=== PATIENT | female | born 1945 | race Caucasian/White ===

== ENCOUNTER → 2016-12-07 | Outpatient (CLI) | payer MEDICARE, OTHER ==
[~2016-12-07] MED LIST: CALTRATE-600 W600 MG PO; LEVOTHYROXINE0.1 MG PO; LISINOPRIL10 MG PO; MVI PO; VITAMIN E800 I1 PO; ZOCOR40 MG PO
[2016-12-07 14:23] LABS: AMYLASE 58 U/L (30-110); LIPASE 212 U/L (23-300)
== END ==
LOC: ZCOL.LAB 13:36
PROVIDERS: Physician Assistant Medical
DX: R10.11 Right upper quadrant pain (principal)

== ENCOUNTER → 2016-12-12 | Outpatient (CLI) | payer MEDICARE, OTHER | LOC: COL.RAD 09:26 | DX: R10.11 Right upper quadrant pain (principal) | CPT/HCPCS: A9537 ==

== ENCOUNTER → 2018-01-13 | Outpatient (CLI) | payer MEDICARE, OTHER | LOC: MC.RAD 13:00 | DX: Z12.31 Encounter for screening mammogram for malignant neoplasm of breast (principal) ==

== ENCOUNTER → 2020-02-02 | Outpatient (CLI) | payer MEDICARE, OTHER | LOC: MC.RAD 09:00 | DX: Z12.31 Encounter for screening mammogram for malignant neoplasm of breast (principal) ==

== ENCOUNTER 2020-04-08 15:47 | Outpatient (CLI) | payer MEDICARE, OTHER ==
[~2020-04-08] VITALS: Ht 157.5 cm; Wt 60.0 kg
[2020-04-08] MEDS ORDERED: SYNTHROID0.1 MG/TAB PO (16:50)
[2020-04-08] MEDS ORDERED: ZESTRIL 10MG10 MG PO (16:51)
[2020-04-08] MEDS ORDERED: ZOCOR 40MG40 MG PO (16:52)
[2020-04-08] MEDS ORDERED: BALANCE B-501 TA1 PO (16:54)
[2020-04-08] MEDS ORDERED: VITAMIN E 400 U4001 PO (16:58)
[2020-04-08 17:07] VITALS: BP 112/62; PULSE 62; TEMP 98
== END 2020-04-08 17:09 | disposition home or self-care (01) ==
LOC: EUO 15:47
DX: M81.0 Age-related osteoporosis without current pathological fracture (principal); M85.80 Other specified disorders of bone density and structure, unspecified site
CPT/HCPCS: J3489

== ENCOUNTER → 2021-03-16 | Outpatient (CLI) | payer MEDICARE, OTHER ==
[~2021-03-16] MED LIST changes: +BALANCE B-501 TA1 PO; +SYNTHROID0.1 MG/TAB PO; +VITAMIN E 400 U4001 PO; +ZESTRIL 10MG10 MG PO; +ZOCOR 40MG40 MG PO
== END ==
LOC: MC.RAD 09:30
DX: Z12.31 Encounter for screening mammogram for malignant neoplasm of breast (principal)

== ENCOUNTER 2021-05-03 13:47 | Outpatient (CLI) | payer MEDICARE, OTHER ==
[~2021-05-03] VITALS: Ht 157.5 cm; Wt 59.1 kg
[2021-05-03 14:23] VITALS: BP 139/74; PULSE 72; TEMP 98.5
== END 2021-05-03 17:24 ==
LOC: EUO 13:47
DX: M81.0 Age-related osteoporosis without current pathological fracture (principal)
CPT/HCPCS: J3489

== ENCOUNTER → 2022-03-29 | Outpatient (CLI) | payer MEDICARE, OTHER | LOC: MC.RAD 03-28 10:00 | DX: Z12.31 Encounter for screening mammogram for malignant neoplasm of breast (principal) ==